=== PATIENT | female | born 1935 | race African-American/Black ===

== ENCOUNTER 2017-03-30 18:54 | Inpatient (IN) | payer MEDICARE, MEDICAID ==
[~2017-03-30] VITALS: Ht 165.1 cm; Wt 76.6 kg
[2017-03-30] VITALS (300 sets, daily range): BP systolic 136; BP diastolic 79; PULSE 68; TEMP 97.2; O2SAT 73–100
[~2017-03-30 18:54] MED LIST: ADVAIR DISKUS1 DS1 IH; ALENDRONATE SOD70 M1 PO; AMITRIPTYLINE H25 M1 PO; ARICEPT10 MG PO; ASPIRIN 32325 MG/TAB PO; B-121000 MCG PO; BROVANA15 MCG/2 M IH; CORTEF 10MG TAB10 MG PO; CYMBALTA 30MG30 MG PO; DESYREL 50MG50 MG PO; DETROL LA4 PO; DIFLUCAN 100MG100 MG PO; DOXYCYCLINE 10100 MG PO; FERGON240 MG PO; GABAPENTIN TAB600 MG PO; HALOBETASOL PRO0.05% TP; IRON325 MG PO; KLOR-CON 1010 MEQ PO; KLOR-CON20 MEQ PO; LEVAQUIN 5500 MG/TA1 PO; MAXZIDE 50 MG-71 TAB PO; MIRALAX PA17 GM/Dose PO; NAMENDA XR 28MG PO; NORCO 325 MG-51 TAB PO; NORCO 325 MG-7.1 TAB PO; PHENERGAN W/CO120 M1 PO; PRAVACHOL80 MG PO; PULMICORT0.5 MG/2 M IH; RT SPIRIVA18 MCG IH; SENOKOT S 50 MG1 TAB PO; TRIAMCINOLONE0.1% TOP; TRIAMTERENE/HCT1 TA2 PO; VOLTAREN GEL 1%1 TU TP; XARELTO20 MG PO; [UNRECOGNIZED DRUG - OTHER] PO
[2017-03-30 19:07] LABS: ARTERIAL BLD GAS O2 SATURATION 91.2 % (92-100); ARTERIAL BLD GAS TCO2 CT 47.1; ARTERIAL BLOOD GAS HCO3 45.1 meq/L (22-26); ARTERIAL BLOOD GAS PO2 64.1 mmHg (80-100); ARTERIAL BLOOD GAS pH 7.47 (7.35-7.45); OXYHEMOGLOBIN 90.5 %
[2017-03-30 19:08] LABS: ALLEN TEST YES; ATS? YES
[2017-03-30] MEDS ORDERED: PRINIVIL10 MG PO (20:58)
[2017-03-30] MEDS ORDERED: LASIX 40MG TABL40 MG PO (20:59)
[2017-03-30] MEDS ORDERED: LASIX 20MG TABL20 MG PO (21:00)
[2017-03-30] MEDS ORDERED: ARICEPT10 MG PO (21:01)
[2017-03-30 21:02] LABS: ADJUSTED CALCIUM 9.1 mg/dL (8.4-10.2); ALBUMIN 3.8 gm/dL (3.5-5.0); BILIRUBIN,TOTAL 0.5 mg/dL (0.0-1.0); CALCIUM 8.9 mg/dL (8.4-10.2); CREATININE, serum 0.86 mg/dL (0.52-1.25); TOTAL PROTEIN 7.6 gm/dL (6.4-8.2)
[2017-03-30] MEDS ORDERED: IPRATROPIUM BROM3 M1 IH ×2 (21:02)
[2017-03-30] MEDS ORDERED: PULMICORT0.5 MG/2 M IH (21:05)
[2017-03-30] MEDS ORDERED: VOLTAREN GEL 1%1 TU TP (21:05)
[2017-03-30 21:18] LABS: TROPONIN-I 0.134 ng/mL (0.000-0.034)
[2017-03-30 21:48] LABS: MAGNESIUM 2.7 mg/dL (1.6-2.3)
[2017-03-30 22:17] LABS: ALLEN TEST YES; ARTERIAL BLD GAS O2 SATURATION 93.2 % (92-100); ARTERIAL BLD GAS TCO2 CT 45.2; ARTERIAL BLOOD GAS BASE EXCESS 16.2 (-2-2); ARTERIAL BLOOD GAS HCO3 43.2 meq/L (22-26); ARTERIAL BLOOD GAS PO2 70.5 mmHg (80-100); ARTERIAL BLOOD GAS pH 7.46 (7.35-7.45); ATS? YES; OXYHEMOGLOBIN 92.4 %
[2017-03-30 23:05] LABS: PH 9 (5-8); SQUAMOUS EPITHELIAL 0-2 /hpf; URINE APPEARANCE Clear; URINE BACTERIA None Seen /hpf; URINE BILIRUBIN Negative (NEGATIVE); URINE BLOOD Negative (NEGATIVE); URINE COLOR Yellow; URINE GLUCOSE Negative (NEGATIVE); URINE KETONE Negative (NEGATIVE); URINE RBC 0-2 /hpf; URINE UROBILINOGEN Negative (NEGATIVE); URINE WBC 0-2 /hpf
[2017-03-31] VITALS (637 sets, daily range): BP systolic 98–133; BP diastolic 54–87; PULSE 57–70; TEMP 98–98.4; O2SAT 51–100
[2017-03-31 05:23] LABS: ALLEN TEST YES; ARTERIAL BLD GAS O2 SATURATION 90.9 % (92-100); ARTERIAL BLOOD GAS BASE EXCESS 5.4 (-2-2); ARTERIAL BLOOD GAS HCO3 31.4 meq/L (22-26); ARTERIAL BLOOD GAS PO2 67.4 mmHg (80-100); ATS? YES; OXYHEMOGLOBIN 90.4 %
[2017-03-31 06:01] LABS: BASO % 0.6 % (0.0-2.0); EOS # 0.3 (0.0-0.7); EOS % 4.1 % (0-4.0); GRAN # 4.3 (1.4-6.5); GRAN % 70.4 % (42.2-75.2); HEMATOCRIT 38.9 % (37.0-47.0); LYMPH % 16.1 % (20.0-51.0); MEAN CELL VOLUME 108 fl (80.0-100.0); MEAN CORPUSCULAR HEMOGLOBIN 32 pg (27.0-31.0); MEAN CORPUSCULAR HGB CONC 29 g/dl (33.0-37.0); MEAN PLATELET VOLUME 10.4 fl (7.4-10.4); MONO # 0.5 (0.1-0.6); MONO % 8.6 % (1.7-9.3); PLATELET COUNT 147 K/mm3 (130-400); WHITE BLOOD COUNT 6.2 K/mm3 (4.8-10.8)
[2017-03-31 06:03] LABS: HEMOGLOBIN 11.4 g/dl (12.5-16.0)
[2017-03-31 06:15] LABS: CALCIUM 8.4 mg/dL (8.4-10.2); CREATININE, serum 0.76 mg/dL (0.52-1.25); POTASSIUM 3.7 mmol/L (3.4-5.0)
[2017-03-31 06:29] LABS: TROPONIN-I 0.109 ng/mL (0.000-0.034)
[2017-04-01 05:10] VITALS: BP 112/55; PULSE 53; TEMP 98.6
[2017-04-01 07:48] VITALS: BP 150/73; PULSE 65; TEMP 98.9
[2017-04-01 08:40] LABS: BASO % 0.8 % (0.0-2.0); EOS # 0.4 (0.0-0.7); EOS % 8.7 % (0-4.0); GRAN # 3.1 (1.4-6.5); GRAN % 63.1 % (42.2-75.2); LYMPH % 20.3 % (20.0-51.0); MEAN CELL VOLUME 109 fl (80.0-100.0); MEAN CORPUSCULAR HGB CONC 30 g/dl (33.0-37.0); MEAN PLATELET VOLUME 11.3 fl (7.4-10.4); MONO # 0.3 (0.1-0.6); MONO % 6.9 % (1.7-9.3); PLATELET COUNT 126 K/mm3 (130-400); RED BLOOD COUNT 3.15 M/mm3 (4.10-5.30); REDCELL DISTRIBUTION WIDTH-CV 14.2 % (11.5-14.5); WHITE BLOOD COUNT 4.9 K/mm3 (4.8-10.8)
[2017-04-01 08:42] LABS: HEMATOCRIT 34.2 % (37.0-47.0); HEMOGLOBIN 10.1 g/dl (12.5-16.0); MEAN CORPUSCULAR HEMOGLOBIN 32 pg (27.0-31.0)
[2017-04-01 08:46] LABS: CALCIUM 8.5 mg/dL (8.4-10.2); CREATININE, serum 0.73 mg/dL (0.52-1.25); POTASSIUM 3.5 mmol/L (3.4-5.0)
[2017-04-01 12:15] VITALS: BP 114/58; PULSE 75; TEMP 98.6
[2017-04-01] MEDS ORDERED: CLEOCIN HC150 MG/CAP PO (14:09)
[2017-04-01] MEDS ORDERED: ASPIRIN 81M81 MG/TA2 PO (14:15)
[2017-04-01 15:30] VITALS: BP 116/52; PULSE 62; TEMP 98.4
== END 2017-04-01 18:26 | disposition home or self-care (01) | DRG 189 ==
LOC: ICU 18:54 → MEDICAL 18:54 → ICU 03-31 10:02 → MEDICAL 03-31 12:15
PROVIDERS: Internal Medicine; Internal Medicine Pulmonary Disease; Nurse Practitioner Family
PROC: 02H633Z Insertion of Infusion Device into Right Atrium, Percutaneous Approach (ICD-10-PCS; principal; 2017-03-30)
DX: J96.01 Acute respiratory failure with hypoxia (principal); J69.0 Pneumonitis due to inhalation of food and vomit; I21.4 Non-ST elevation (NSTEMI) myocardial infarction; J44.0 Chronic obstructive pulmonary disease with (acute) lower respiratory infection; E87.0 Hyperosmolality and hypernatremia; C34.31 Malignant neoplasm of lower lobe, right bronchus or lung; G82.20 Paraplegia, unspecified; E87.4 Mixed disorder of acid-base balance; I50.32 Chronic diastolic (congestive) heart failure; E87.6 Hypokalemia; I11.0 Hypertensive heart disease with heart failure; I27.2 Other secondary pulmonary hypertension; B91 Sequelae of poliomyelitis; F03.90 Unspecified dementia, unspecified severity, without behavioral disturbance, psychotic disturbance, mood disturbance, and anxiety; Z86.711 Personal history of pulmonary embolism; Z79.01 Long term (current) use of anticoagulants
CPT/HCPCS: 99233-AI; 99239; A4315; C1751; J0456; J1644; J1650; J2543; J3480; J7030; J7050

== ENCOUNTER 2017-04-29 17:34 | Observation (INO) | payer MEDICARE, MEDICAID ==
[~2017-04-29] VITALS: Ht 157.5 cm; Wt 80.9 kg
[~2017-04-29 17:34] MED LIST changes: +ASPIRIN 81M81 MG/TA2 PO; +CLEOCIN HC150 MG/CAP PO; +IPRATROPIUM BROM3 M1 IH; +LASIX 20MG TABL20 MG PO; +LASIX 40MG TABL40 MG PO; +PRINIVIL10 MG PO
[2017-04-29] MEDS ORDERED: RT SPIRIVA18 MCG IH (17:47)
[2017-04-29] MEDS ORDERED: PROAIR HFA0.09 MG/AC IH (17:48)
[2017-04-29] MEDS ORDERED: MAXZIDE 50 MG-71 TAB PO (17:49)
[2017-04-29] MEDS ORDERED: BROVANA15 MCG/2 M IH (17:49)
[2017-04-29] MEDS ORDERED: ALBUTEROL0.83 MG/ML IH (17:49)
[2017-04-29] MEDS ORDERED: LASIX 20MG TABL20 MG PO (17:50)
[2017-04-29] MEDS ORDERED: NORCO 325 MG-51 TAB PO (17:50)
[2017-04-29] MEDS ORDERED: PREDNISONE20 MG PO (17:51)
[2017-04-29] MEDS ORDERED: DESYREL 50MG50 MG PO (17:52)
[2017-04-29] MEDS ORDERED: AMITRIPTYLINE H25 M1 PO (17:53)
[2017-04-29] MEDS ORDERED: PULMICORT0.5 MG/2 M IH (17:53)
[2017-04-29] MEDS ORDERED: B-12 100 MCG (17:53)
[2017-04-29] MEDS ORDERED: CYMBALTA 30MG30 MG PO (17:54)
[2017-04-29] MEDS ORDERED: VOLTAREN GEL 1%1 TU TP (17:54)
[2017-04-29] MEDS ORDERED: NEURONTIN600 MG/TAB PO (17:55)
[2017-04-29] MEDS ORDERED: FERROUS GLUCON240 MG PO (17:55)
[2017-04-29] MEDS ORDERED: K-DUR20 MEQ PO (17:56)
[2017-04-29] MEDS ORDERED: NAMENDA XR 28MG PO (17:56)
[2017-04-29] MEDS ORDERED: CORTEF 10MG TAB10 MG PO (17:56)
[2017-04-29] MEDS ORDERED: PRAVACHOL 20MG20 MG PO (17:57)
[2017-04-29] MEDS ORDERED: XARELTO20 MG PO (17:58)
[2017-04-29] MEDS ORDERED: PROMETHAZINE D473 ML PO (17:58)
[2017-04-29] MEDS ORDERED: [UNRECOGNIZED DRUG - OTHER] (18:00)
[2017-04-29 18:21] VITALS: BP 111/78; PULSE 67; TEMP 98.5
[2017-04-29 18:43] LABS: BASO # 0.1 (0.0-0.2); BASO % 1.1 % (0.0-2.0); EOS # 0.7 (0.0-0.7); EOS % 12.6 % (0-4.0); GRAN # 2.8 (1.4-6.5); GRAN % 53.2 % (42.2-75.2); HEMATOCRIT 39.2 % (37.0-47.0); HEMOGLOBIN 12.1 g/dl (12.5-16.0); LYMPH # 1.3 (1.2-3.4); LYMPH % 24.8 % (20.0-51.0); MEAN CELL VOLUME 102 fl (80.0-100.0); MEAN CORPUSCULAR HEMOGLOBIN 32 pg (27.0-31.0); MEAN CORPUSCULAR HGB CONC 31 g/dl (33.0-37.0); MEAN PLATELET VOLUME 10.6 fl (7.4-10.4); MONO # 0.4 (0.1-0.6); MONO % 8.1 % (1.7-9.3); PLATELET COUNT 152 K/mm3 (130-400); RED BLOOD COUNT 3.84 M/mm3 (4.10-5.30); REDCELL DISTRIBUTION WIDTH-CV 13.4 % (11.5-14.5); WHITE BLOOD COUNT 5.3 K/mm3 (4.8-10.8)
[2017-04-29 18:47] LABS: ARTERIAL BLD GAS O2 SATURATION 92.5 % (92-100); ARTERIAL BLOOD GAS BASE EXCESS 5.9 (-2-2); ARTERIAL BLOOD GAS HCO3 31.5 meq/L (22-26); ARTERIAL BLOOD GAS PHT 7.42 C (7.35-7.45); ARTERIAL BLOOD GAS PO2 68.5 mmHg (80-100); ARTERIAL BLOOD GAS PO2T 68.5 (80-100); ARTERIAL BLOOD GAS pH 7.42 (7.35-7.45); OXYHEMOGLOBIN 91.3 %
[2017-04-29 18:50] LABS: ATS? YES
[2017-04-29 18:51] LABS: ALLEN TEST YES; ALLENS TEST RESULT PASS
[2017-04-29 18:55] LABS: ADJUSTED CALCIUM 9.5 mg/dL (8.4-10.2); ALBUMIN 3.6 gm/dL (3.5-5.0); BILIRUBIN,TOTAL 0.4 mg/dL (0.0-1.0); CALCIUM 9.2 mg/dL (8.4-10.2); CREATININE, serum 1.01 mg/dL (0.52-1.25); POTASSIUM 4.2 mmol/L (3.4-5.0); TOTAL PROTEIN 7.2 gm/dL (6.4-8.2)
[2017-04-29 21:09] VITALS: BP 138/70; PULSE 60; TEMP 97.7
[2017-04-29] MEDS ORDERED: PRINIVIL10 MG PO (21:38)
[2017-04-29] MEDS ORDERED: ARICEPT10 MG PO (21:38)
[2017-04-30 00:26] VITALS: BP 123/68; PULSE 67; TEMP 98.2
[2017-04-30 03:37] VITALS: BP 139/72; PULSE 56; TEMP 97.3
[2017-04-30 06:20] LABS: ARTERIAL BLD GAS O2 SATURATION 91.1 % (92-100); ARTERIAL BLD GAS TCO2 CT 33.6; ARTERIAL BLOOD GAS BASE EXCESS 5.7 (-2-2); ARTERIAL BLOOD GAS PHT 7.39 C (7.35-7.45); ARTERIAL BLOOD GAS PO2 68.9 mmHg (80-100); ARTERIAL BLOOD GAS PO2T 68.9 (80-100); ARTERIAL BLOOD GAS pH 7.39 (7.35-7.45)
[2017-04-30 06:23] LABS: ALLEN TEST YES; ALLENS TEST RESULT PASS; ATS? YES
[2017-04-30 08:20] VITALS: BP 105/53; PULSE 50; TEMP 98.6
[2017-04-30 11:15] VITALS: BP 113/71; PULSE 65; TEMP 97.6
[2017-04-30] MEDS ORDERED: ASPIRIN E.C. 8181 MG PO (13:06)
== END 2017-04-30 15:00 | disposition home or self-care (01) ==
LOC: MEDICAL 17:34
PROVIDERS: Internal Medicine; Internal Medicine Pulmonary Disease
DX: J96.11 Chronic respiratory failure with hypoxia (principal); C34.91 Malignant neoplasm of unspecified part of right bronchus or lung; I21.4 Non-ST elevation (NSTEMI) myocardial infarction; J44.9 Chronic obstructive pulmonary disease, unspecified; I26.99 Other pulmonary embolism without acute cor pulmonale; F03.90 Unspecified dementia, unspecified severity, without behavioral disturbance, psychotic disturbance, mood disturbance, and anxiety; I27.2 Other secondary pulmonary hypertension; I11.0 Hypertensive heart disease with heart failure; I50.30 Unspecified diastolic (congestive) heart failure; I08.3 Combined rheumatic disorders of mitral, aortic and tricuspid valves; M19.90 Unspecified osteoarthritis, unspecified site; Z98.2 Presence of cerebrospinal fluid drainage device; E78.5 Hyperlipidemia, unspecified; I73.9 Peripheral vascular disease, unspecified; M85.80 Other specified disorders of bone density and structure, unspecified site; R79.89 Other specified abnormal findings of blood chemistry; Z92.3 Personal history of irradiation; Z85.118 Personal history of other malignant neoplasm of bronchus and lung; Z86.73 Personal history of transient ischemic attack (TIA), and cerebral infarction without residual deficits; Z87.891 Personal history of nicotine dependence; Z98.51 Tubal ligation status; Z82.49 Family history of ischemic heart disease and other diseases of the circulatory system; Z99.81 Dependence on supplemental oxygen; Z90.49 Acquired absence of other specified parts of digestive tract
CPT/HCPCS: G0378; G8987-GO; G8988-GO